=== PATIENT | male | born 1970 | race Caucasian/White ===

== ENCOUNTER 2017-04-03 11:03 | Emergency (ER) | payer OTHER ==
[~2017-04-03] VITALS: Wt 72.5 kg
--- NOTE | 2017-04-03 12:59 | ERA ---
ER Documentation Chief Complaint Date/Time DATE: 04/03/17 TIME: 12:59 Chief Complaint CHEST PAIN FOR THE PAST FEW DAYS. WITH MILD SOB , NO N/V. HPI The patient is a 46-year-old male, presenting to the ER because of substernal chest pain intermittently for the last 3 days, worse with eating and movement. He denies similar symptoms previously, denies any radiation, denies chest pain with exertion or vomiting or diaphoresis. The pain, nausea, vomiting, dysuria, diarrhea. He does not smoke, drinks regularly, denies any illicit drug Past medical history: None Past surgical history: Appendectomy Family history: Negative for cardiac history ROS All systems reviewed and are negative except as per history of present illness. Medications Home Meds Active Scripts Pantoprazole Sodium (Protonix) 40 Mg Granpkt.dr, 40 MG PO DAILY, #14 Prov:KAVITA ZAIDI MD 04/03/17 Ibuprofen* (Motrin*) 600 Mg Tab, 600 MG PO Q6H Y for PAIN, #14 TAB Prov:KAVITA ZAIDI MD 04/03/17 Allergies Allergies: Coded Allergies: No Known Allergy (Unverified , 04/03/17) Physical Exam Vitals Vital Signs Date Time Temp Pulse Resp B/P Pulse Ox O2 Delivery O2 Flow Rate FiO2 04/03/17 17:22 70 18 126/92 98 Room Air 04/03/17 11:06 98.8 83 21 170/81 100 Physical Exam Const: No acute distress. Head: Atraumatic. Eyes: Normal Conjunctiva. ENT: Normal External Ears, Nose and Mouth. Neck: Full range of motion. No meningismus. Resp: Clear to auscultation bilaterally. Cardio: Regular rate and rhythm, no murmurs. Abd: Soft, non distended, normal bowel sounds, non tender. Skin: No petechiae or rashes. Back: No midline or flank tenderness. Ext: No cyanosis, or edema. Neur: Awake and alert. No focal deficit Psych: Normal Mood and Affect. Result Diagram: 04/03/17 1315 04/03/17 1315 Results 24 hrs Laboratory Tests Test 04/03/17 13:15 04/03/17 16:00 White Blood Count 5.810^3/ul Red Blood Count 5.7110^6/ul Hemoglobin 16.0g/dl Hematocrit 46.9% Mean Corpuscular Volume 82.1fl Mean Corpuscular Hemoglobin 28.0pg Mean Corpuscular Hemoglobin Concent 34.1g/dl Red Cell Distribution Width 12.7% Platelet Count 92216^3/UL Mean Platelet Volume 10.3fl Neutrophils % 58.7% Lymphocytes % 28.6% Monocytes % 9.6% Eosinophils % 2.1% Basophils % 0.7% Nucleated Red Blood Cells % 0.0/100WBC Neutrophils # 3.410^3/ul Lymphocytes # 1.710^3/ul Monocytes # 0.610^3/ul Eosinophils # 0.110^3/ul Basophils # 0.010^3/ul Nucleated Red Blood Cells # 0.010^3/ul Prothrombin Time 12.9Sec Prothrombin Time Ratio 1.0 INR International Normalized Ratio 0.97 Activated Partial Thromboplast Time 26.6Sec Sodium Level 141mmol/L Potassium Level 4.2mmol/L Chloride Level 105mmol/L Carbon Dioxide Level 25mmol/L Anion Gap 15 Blood Urea Nitrogen 11mg/dl Creatinine 0.76mg/dl Glucose Level 94mg/dl Calcium Level 9.9mg/dl Troponin I < 0.012ng/ml < 0.012ng/ml Current Medications Medications (Trade) Dose Ordered Sig/Stephania Route PRN Reason Start Time Stop Time Status Last Admin Dose Admin Ketorolac Tromethamine (Toradol) 30 mg ONCE STAT IV 04/03/17 13:04 04/03/17 13:06 DC 04/03/17 13:22 Pantoprazole (Protonix Iv) 40 mg ONCE ONCE IV 04/03/17 13:30 04/03/17 13:31 DC 04/03/17 13:22 Procedures/[place] [id number] Radiology Main Line: [phone] DIAGNOSTIC IMAGING REPORT Patient: SILVANO CLARKE : 1970 Age: 46 Sex: M MR #: [id number] DOS: 04/03/17 1304 Ordering MD: KAVITA ZAIDI MD Location: E/R Room/Bed: PROCEDURE: Chest x-ray CLINICAL INDICATION: Chest pain TECHNIQUE: Chest single view COMPARISON: None FINDINGS: The heart is normal in size. The pulmonary vessels are normal in caliber. The lungs are clear. The costophrenic angles are sharp. The visualized bony thorax is unremarkable. IMPRESSION: No acute cardiopulmonary disease. RPTAT: HH .French Toth MD, MD Date Time Electronically viewed and signed by .French Toth MD, MD on 04/03/2017 13:19 .W/ CC: KAVITA ZAIDI MD EKG: At 11:10 AM read by emergency physician Rate/Rhythm: Normal Sinus Rhythm 85 beats/min QRS, ST, T-waves: No ST elevation, no T inversion, nonspecific T abnormality Impression: Abnormal EKG EKG: At 1:26 PM read by emergency physician Rate/Rhythm: Normal Sinus Rhythm 75 beats/min QRS, ST, T-waves: No ST elevation, no T inversion Impression: normal EKG MEDICAL MAKING DECISION: The patient is a 46-year-old male, presenting with acute chest pain of unclear etiology. He was treated with Toradol 30 mg IV for pain and Protonix 40 mg for epigastric discomfort with good response. The differential diagnoses considered include but are not limited to acute coronary syndrome, acute myocardial infarction, pericarditis, pulmonary embolism , aortic dissection, pneumonia, pleural effusion, pneumothorax, GERD, chest wall pain. Departure Diagnosis: Primary Impression: Chest pain Condition: Good Comments He was discharged with Motrin and Protonix The patient presents with chest pain and I considered pulmonary embolism, aortic dissection, pneumothorax among other diagnoses. Evaluation for acute coronary syndrome was performed. The HEART score (www.mdcalc.com) was utilized for risk stratification and found to be <= 3. Repeat EKG and troponin @ 3 hours were unchanged. Based on this evaluation the patients risk of major adverse cardiac events is <1%. Shared decision making occurred with patient and the decision has been made to discharge the patient for outpatient evaluation and functional study within 72 hours. The patient's blood pressure was elevated (>120/80) but appears stable without evidence of hypertension emergency or urgency. The patient was counseled about the risks of hypertension and urged to pursue outpatient monitoring and therapy within a week with their primary care physician. KAVITA ZAIDI MD April 03, 2017 12:59
[2017-04-03] MEDS ORDERED: KETOROLAC 30 MG INJ IV STA (13:04)
--- NOTE | 2017-04-03 13:19 | RADRPT ---
PROCEDURE: Chest x-ray CLINICAL INDICATION: Chest pain TECHNIQUE: Chest single view COMPARISON: None FINDINGS: The heart is normal in size. The pulmonary vessels are normal in caliber. The lungs are clear. Th e costophrenic angles are sharp. The visualized bony thorax is unremarkable. IMPRESSION: No acute cardiopulmonary disease. RPTAT: HH .French Toth MD, Date Time Electronically viewed and signed by .French Toth MD, MD on 04/03/2017 13:19 .W/
[2017-04-03 13:26] LABS: ADD SCAN DIFF NO
[2017-04-03] MEDS ORDERED: PANTOPRAZOLE 40 MG INJ IV ONE (13:30)
[2017-04-03 13:35] LABS: EOSINOPHILS # 0.1 10^3/ul (0.0-0.5); NEUTROPHIL # 3.4 10^3/ul (1.6-7.5); RED CELL DISTRIBUTION WIDTH 12.7 % (11.5-14.5)
[2017-04-03 13:40] LABS: BASOPHILS % 0.7 % (0.0-2.0); EOSINOPHILS % 2.1 % (0.0-7.0); HEMATOCRIT 46.9 % (42.0-52.0); LYMPHOCYTES # 1.7 10^3/ul (0.8-2.9); LYMPHOCYTES % 28.6 % (15.0-51.0); MEAN CORPUSCULAR HGB CONC 34.1 g/dl (32.0-37.0); MEAN CORPUSCULAR VOLUME 82.1 fl (82.0-101.0); MEAN PLATELET VOLUME 10.3 fl (7.4-10.4); MONOCYTE # 0.6 10^3/ul (0.3-0.9); MONOCYTES % 9.6 % (0.0-11.0); NEUTROPHILS % 58.7 % (39.0-77.0); PLATELET COUNT 256 10^3/UL (140-415); RED BLOOD COUNT 5.71 10^6/ul (4.70-6.10); WHITE BLOOD COUNT 5.8 10^3/ul (4.8-10.8)
[2017-04-03 13:50] LABS: INR 0.97; PROTIME 12.9 Sec (12.2-14.2)
[2017-04-03 13:51] LABS: PARTIAL THROMBOPLASTIN TIME 26.6 Sec (25.0-35.0)
[2017-04-03 13:55] LABS: ANION GAP 15 (8-16); BLOOD UREA NITROGEN 11 mg/dl (7-20); CALCIUM 9.9 mg/dl (8.4-10.2); CARBON DIOXIDE 25 mmol/L (21-31); CHLORIDE 105 mmol/L (97-110); CREATININE 0.76 mg/dl (0.61-1.24); GLUCOSE 94 mg/dl (70-220); POTASSIUM 4.2 mmol/L (3.5-5.1); SODIUM 141 mmol/L (135-144)
[2017-04-03 14:13] LABS: TROPONIN-I < 0.012 ng/ml (0.00-0.12)
[2017-04-03] MEDS ORDERED: IBUP-1542 PO (17:17)
[2017-04-03] MEDS ORDERED: PANT40SU PO (17:17)
[2017-04-03 17:22] VITALS: BP 126/92; PULSE 70; RESP 18
== END 2017-04-03 17:32 | disposition home or self-care (01) ==
LOC: E/R 11:03
DX: R07.2 Precordial pain (principal); R40.2142 Coma scale, eyes open, spontaneous, at arrival to emergency department; R40.2252 Coma scale, best verbal response, oriented, at arrival to emergency department; R40.2362 Coma scale, best motor response, obeys commands, at arrival to emergency department; R06.02 Shortness of breath
CPT/HCPCS: 36415; 71010; 80048; 84484; 85025; 85610; 85730; 93005; 96374; 96375; 99285; C9113; J1885